=== PATIENT | female | born 1995 | race Caucasian/White ===

== ENCOUNTER 2023-02-17 13:19 | Emergency (ER) | payer SELFPAY ==
[2023-02-17 13:45] VITALS: BMI 20.9
[2023-02-17 14:25] LABS: EPI CELLS >36 /uL (0-25.1); HYALINE CASTS 0 /uL (0-3.1); PH,URINE 7.5 (5.0-8.0); URINE APPEARANCE CLEAR; URINE BACTERIA 1119 /uL (0-1359); URINE BILIRUBIN NEGATIVE (NEGATIVE); URINE COLOR YELLOW; URINE GLUCOSE (UA) NEGATIVE (NEGATIVE); URINE KETONE NEGATIVE (NEGATIVE); URINE LEUK ESTERASE 3+ (NEGATIVE); URINE NITRITE NEGATIVE (NEGATIVE); URINE PROTEIN NEGATIVE (NEGATIVE); URINE RBC 94 /uL (0-23.9); URINE UROBILINOGEN 0.2 mg/dL (0.2-1.0); URINE WBC 163 /uL (0-25.8)
[2023-02-17] MEDS ORDERED: FENTANYL CITRATE/PF 50 MCG/ML VIAL ONE (17:04)
[2023-02-17] MEDS ORDERED: BUPIVACAINE HCL/PF 0.25% (2.5MG/ML) 10 ML VIAL ONE (17:04)
[2023-02-17 17:18] VITALS: BP 99/61; PULSE 89; RESP 20; TEMP 98.9
== END 2023-02-17 18:30 | disposition home or self-care (01) ==
LOC: JER 13:19 → JERFT 13:19 → JER 18:30
DX: O26.892 Other specified pregnancy related conditions, second trimester (principal); R10.2 Pelvic and perineal pain; R31.9 Hematuria, unspecified; R39.15 Urgency of urination; Z3A.24 24 weeks gestation of pregnancy
CPT/HCPCS: 76815; 81003; 99284-25